=== PATIENT | male | born 1980 | race Caucasian/White ===

== ENCOUNTER → 2018-10-31 | Outpatient (CLI) | payer OTHER ==
--- NOTE | 2018-10-31 14:02 | XR ---
Cervical spine HISTORY: Increasing pain and numbness down arm following fall 4 months ago 2 views of the cervical spine There is reversal the normal cervical lordosis. Minimal anterolisthesis grade 1 C3-4, retrolisthesis grade 1 C5-6. Loss of disc height greatest at C5-6 with associated spondylosis. Prevertebral soft tis sues are normal. Cervical vertebral bodies show preserved height and bone mineralization. No odontoid view. IMPRESSION: Degenerative disc disease, facet arthropathy. MRI may be of benefit.
--- NOTE | 2018-10-31 14:20 | XR ---
Right shoulder HISTORY: Pain 2 views of the right shoulder Bone mineralization, joint spaces and alignment are maintained. Right lung apex as visualized is norm al. IMPRESSION: No significant abnormality is evident.
== END | disposition home or self-care (01) ==
LOC: RADXRYALE 11:42
PROVIDERS: ATTEND Internal Medicine
DX: M50.30 Other cervical disc degeneration, unspecified cervical region (principal); M46.92 Unspecified inflammatory spondylopathy, cervical region; M25.511 Pain in right shoulder
CPT/HCPCS: 72040